=== PATIENT | male | born 1985 | race Caucasian/White ===

== ENCOUNTER 2021-08-05 08:58 | Outpatient (REF) | payer OTHER, SELFPAY ==
[2021-08-05 09:49] LABS: COVID-19 Test Negative (Negative)
== END 2021-08-05 08:59 | disposition home or self-care (01) ==
LOC: HO.LAB 08:58
PROVIDERS: Visit Provider Internal Medicine
DX: Z20.822 Contact with and (suspected) exposure to COVID-19 (principal)
CPT/HCPCS: 87635; C9803

== ENCOUNTER 2021-08-07 13:00 | Outpatient (REF) | payer OTHER, SELFPAY ==
[2021-08-07 13:18] LABS: COVID-19 Test Positive (Negative)
== END 2021-08-07 13:01 | disposition home or self-care (01) ==
LOC: HO.LAB 13:00
PROVIDERS: Visit Provider Internal Medicine
DX: Z20.822 Contact with and (suspected) exposure to COVID-19 (principal)
CPT/HCPCS: 87635; C9803

== ENCOUNTER 2022-09-14 13:41 | Emergency (ER) | payer OTHER, SELFPAY | END 2022-09-14 14:41 | disposition left against medical advice (07) | PROVIDERS: Emergency Provider Emergency Medicine | DX: R21 Rash and other nonspecific skin eruption (principal) ==